=== PATIENT | female | born 1995 | race Caucasian/White ===

== ENCOUNTER 2023-04-18 11:59 | Emergency (ER) | payer OTHER ==
[2023-04-18 12:07] VITALS: BP 135/85
--- NOTE | 2023-04-18 14:18 | XRAY Report ---
PROCEDURE: Pelvis 1 View INDICATIONS: IUD broken when removed, copper TECHNIQUE: Single AP view of the pelvis acquired. COMPARISON: None. FINDINGS: Bones: No acute fractures or dislocations. No suspicious bony lesions. Soft tissues: Visualized bowel gas pattern is normal. No suspicious soft tissue calcifications. R adiopaque foreign body is seen projecting over the central pelvis, compatible with an intrauterine de vice as clinically described. IMPRESSION: Radiopaque foreign body seen projecting over the pelvis, consistent with an intrauterine device or re tained fragment. Recommend clinical correlation. Reviewed by: Wade Ramirez MD on 04/18/2023 2:16 PM PDT Approved by: Wade Ramirez MD on 04/18/2023 2:16 PM PDT Station ID: [id number]
--- NOTE | 2023-04-18 15:04 | ED Physician Documentation ---
History of Present Illness - Stated complaint Stated Complaint: FEMALE - Chief complaint Chief Complaint: General - History obtained from History obtained from: Patient - History of Present Illness Timing: Today Pain level max: 0 Pain level now: 0 - Additonal information Additional information: Patient is a 27-year-old female who presents to the emergency department stating that she pulled her ParaGard IUD out at home, but one of the arms was broken off. She is asymptomatic. Nothing makes it better or worse. Review of Systems Constitutional: denies: Fever GI: denies: Vomiting : denies: Dysuria, Frequency, Hesitancy, Discharge, Vaginal bleeding, Now [facility] PD PAST MEDICAL HISTORY - Past Medical History Past Medical History: No - Past Surgical History Past Surgical History: No - Allergies Allergies/Adverse Reactions: Allergies Allergy/AdvReac Type Severity Reaction Status Date / Time amoxicillin [From Amoxil] Allergy Hives Verified 04/18/23 12:06 PD ED PE NORMAL - Vitals Vital signs reviewed: Yes - General General: Alert and oriented X 3, No acute distress - HEENT HEENT: Moist mucous membranes - Cardiac Cardiac: RRR - Respiratory Respiratory: No respiratory distress, Clear bilaterally - Abdomen Abdomen: Soft, Non tender, Non distended - Derm Derm: Warm and dry - Neuro Neuro: Alert and oriented X 3 - Psych Psych: Normal mood, Normal affect Results - Vitals Vitals: Vital Signs - 24 hr 04/18/23 12:04 Temperature 36.2 C L Heart Rate 86 Respiratory 16 Rate Blood Pressure 135/85 H O2 Saturation 99 Oxygen O2 Source Room air - Rads (name of study) Pelvic x-ray Relevant Findings:: Final report received, See rad report Pelvis ultrasound Relevant Findings:: Final report received, See rad report PD Medical Decision Making - ED course Complexity details: reviewed results, re-evaluated patient, considered differential, d/w patient ED course: 27-year-old female with a retained fragment of the IUD in the lower uterine segment. Discussed the case with Dr. Gillespie, gynecology, recommends follow-up in office for further evaluation. Patient counseled regarding signs and symptoms for which I believe and urgent re-evaluation would be necessary. Patient with good understanding of and agreement to plan and is comfortable going home at this time This document was made in part using voice recognition software. While efforts are made to proofread this document, sound alike and grammatical errors may occur. IMPRESSION: Radiopaque foreign body seen projecting over the pelvis, consistent with an intrauterine device or retained fragment. Recommend clinical correlation. Pelvic US IUD retained fragment in lower uterine segment. Departure - Departure Disposition: 01 Home, Self Care Clinical Impression: Retained intrauterine contraceptive device (IUD) Condition: Good Instructions: Control IUD Follow-Up: [facility] [Provider Group] - Within 1 week Comments: The arm of your IUD appears to be in the lower uterine segment. Please do not attempt to get until cleared by gynecology. Please return if you worsen. The [facility] women's clinic will call you for a follow-up appointment, if you do not hear from them in the next few days, please call them. I spoke with Dr. Gillespie today Discharge Date/Time: 04/18/23 15:14
--- NOTE | 2023-04-18 15:51 | Ultrasound Report ---
PROCEDURE: Pelvic Limited or F/U INDICATIONS: IUD wing retained after self removal TECHNIQUE: Real-time transabdominal scanning was performed of the pelvic organs, with image documentation. COMPARISON: Pelvic radiographs 04/18/2023 FINDINGS: Uterus: Uterus is retroverted and subjectively normal in size. The myometrium is homogeneous. Intrau terine device fragment is seen in the lower uterine segments and appears to be slightly to the right of the endometrial canal, possibly within the myometrium. IMPRESSION: IUD fragment is located in the lower uterine segment on the right side, likely at least partially wit hin the myometrium. Reviewed by: Wade Ramirez MD on 04/18/2023 3:49 PM PDT Approved by: Wade Ramirez MD on 04/18/2023 3:49 PM PDT Station ID: [id number]
== END 2023-04-18 15:14 | disposition home or self-care (01) ==
LOC: ED 11:59
DX: T83.39XA Other mechanical complication of intrauterine contraceptive device, initial encounter (principal)
CPT/HCPCS: 99283; 99284

== ENCOUNTER 2023-09-02 07:43 | Day surgery (SDC) | payer OTHER ==
[2023-09-02 08:26] LABS: HCG UR QUAL NEGATIVE
[2023-09-02] MEDS ORDERED: LACTATED RINGERS 1,000 ML IV ONE (08:31)
--- NOTE | 2023-09-02 08:52 | HISTORY & PHYSICAL EXAMINATION ---
History and Physical - History and Physical HPI: Patient is a 28-year-old female presenting today for hysteroscopic removal of retained IUD arm. She desires sterility and attempted to remove the IUD, but the arm was left in place. All other symptoms reviewed and were negative except per HPI. PMH Denies pertinent medical history PSH No previous surgeries SH Denies tobacco, alcohol, drugs Family History Noncontributory Allergies Amoxicillin Medications Occasional Benadryl Physical exam: Temp Pulse Resp BP Pulse Ox O2 Flow Rate 97.3 F L 93 16 126/83 H 100 09/02/23 08:13 09/02/23 08:13 09/02/23 08:13 09/02/23 08:13 09/02/23 08:13 General: Alert, oriented, no acute distress Head: Normal cephalic atraumatic Eyes: PERRLA, extraocular motions intact. Respiratory: Normal rate of respiration. No accessory muscle use, normal respiratory effort. Cardiovascular: Regular rate and rhythm Abdomen: Nontender, nondistended Extremities: Normal range of motion, no cords palpated tenderness in the calves bilaterally. Neuro: Oriented x3. Normal movements Psych: Appropriate mood and affect. Normal judgment and insight Plan 28-year-old female with retained IUD next 1. Retained IUD -Discussed the risk, benefits alternatives of the procedure with the patient and she would still like to proceed with hysteroscopic removal of retained IUD arm. We discussed that if we are unable to see, which she may have to go to a facility with fluoroscopy, but we will discuss that after surgery if necessary. Antibiotics not indicated. All patient's questions were answered and she would like to proceed.
[2023-09-02] MEDS ORDERED: SILVER NITRATE APPLICATOR TOP ONE (08:56)
[2023-09-02] MEDS ORDERED: BUPIVACAINE 0.5% PF 10 ML VIAL ONE (08:56)
[2023-09-02] MEDS ORDERED: LIDOCAINE 1%-EPI 1:100000 20 ML MDV ONE (08:56)
[2023-09-02] MEDS ORDERED: HYDROmorphone 0.5 MG/0.5 ML SYRINGE IVP PRN (08:57)
[2023-09-02] MEDS ORDERED: NALOXONE 0.4 MG/ML VIAL IVP PRN (08:57)
[2023-09-02] MEDS ORDERED: ATROPINE ABBOJECT 1 MG/10 ML SYRINGE IVP PRN (08:57)
[2023-09-02] MEDS ORDERED: MORPHINE 2 MG/ML CARPUJECT IVP PRN (08:57)
[2023-09-02] MEDS ORDERED: ePHEDrine 50 MG/ML VIAL IVP PRN (08:57)
[2023-09-02] MEDS ORDERED: ONDANSETRON 4 MG/2 ML VIAL IVP PRN (08:57)
[2023-09-02] MEDS ORDERED: fentaNYL 100 MCG/2 ML VIAL IVP PRN (08:57)
[2023-09-02] MEDS ORDERED: METOCLOPRAMIDE 10 MG/2 ML VIAL IVP PRN (08:57)
--- NOTE | 2023-09-02 08:57 | ANESTHESIA ---
Pre-Anesthesia VS, & Labs - Diagnosis IUD retained - Procedure IUD removal Vital Signs: Temp Pulse Resp BP Pulse Ox O2 Flow Rate 36.3 C L 93 16 126/83 H 100 09/02/23 08:13 09/02/23 08:13 09/02/23 08:13 09/02/23 08:13 09/02/23 08:13 Height: 5 ft 5 in Weight (kg): 88.4 kg Body Mass Index: 32.4 BMI Classification: Obese - NPO >8 hours - Is Patient ?: No - Lab Results Lab results reviewed: Yes Home Medications and Allergies Home Medications: Ambulatory Orders Cholecalciferol [Vitamin D3] 25 mcg PO DAILY 08/25/23 Multivitamin 1 each PO DAILY 08/25/23 Cholecalciferol [Vitamin D3] 25 mcg PO DAILY 08/25/23 Multivitamin 1 each PO DAILY 08/25/23 Allergies/Adverse Reactions: Allergies Allergy/AdvReac Type Severity Reaction Status Date / Time amoxicillin [From Amoxil] Allergy Hives Verified 04/18/23 12:06 Anes History & Medical History - Anesthetic History Anesthesia Complications: reports: No previous complications Family history of Anesthesia Complications: Denies Family history of Malignant Hyperthermia: Denies - Medical History Cardiovascular: reports: None Pulmonary: reports: None Gastrointestinal: reports: None Urinary: reports: None Musculoskeletal: reports: None Endocrine/Autoimmune: reports: None Skin: reports: None Exam General: Alert, Oriented x3, Cooperative Dental: WNL Mouth Openin Fingerbreadth Neck Mobility: Normal Mallampati classification: II Thyromental Distance: 4-6 cm Respiratory: Lungs clear, Normal breath sounds, No respiratory distress Cardiovascular: Regular rate Neurological: Normal speech Mental/Cognitive Status: Alert/Oriented X3, Normal for patient Cognitive Status: Within normal limits Plan Anesthesia Type: MAC, Total IV Consent for Procedure(s) Verified and Reviewed: Yes Code Status: Attempt Resuscitation ASA classification: 2-Mild systemic disease Is this case an emergency?: No
[2023-09-02] MEDS ORDERED: LACTATED RINGERS 1,000 ML IV SCH (09:00)
[2023-09-02] MEDS ORDERED: MIDAZOLAM 2 MG/2 ML VIAL ONE (09:10)
[2023-09-02] MEDS ORDERED: PROPOFOL 200 MG/20 ML VIAL IVP ONE ×3 (09:11→10:04)
[2023-09-02] MEDS ORDERED: LIDOCAINE-PF 2% 10 ML AMP SUBQ ONE (09:32)
[2023-09-02] MEDS ORDERED: BUPIVACAINE 0.5% PF 10 ML VIAL IM ONE ×2 (09:42)
[2023-09-02] MEDS ORDERED: LIDOCAINE 1%-EPI 1:100000 20 ML MDV SUBQ ONE ×2 (09:42)
[2023-09-02] MEDS ORDERED: KETOROLAC 30 MG/ML VIAL ONE (09:53)
[2023-09-02] MEDS ORDERED: LACTATED RINGERS 250 ML IV ONE (10:11)
--- NOTE | 2023-09-02 10:11 | OPERATIVE REPORT ---
Operative Report - General Procedure Date: 09/02/23 Planned Procedure: Hysteroscopy, possible MyoSure D&C, IUD removal Pre-Op Diagnosis: Retained IUD Procedure Performed: Hysteroscopy, MyoSure D&C Post Op Diagnosis: Retained IUD - Procedure Note Primary Surgeon: Mitchel Veliz MD Anesthesia Provider: Michael Whitley CRNA Anesthesia Technique: Other (IV general) Pathology: None IV Fluids (mL): 600 Estimated Blood Loss (mL): 2 Findings: Proliferative appearing endometrium, normal uterine cavity. Bilateral tubal ostia noted. No IUD fragment located. Complications: None - Other Other Information/Narrative: Patient was taken to the procedure room and placed in dorsal lithotomy position. Hibiclens was used to clean the operative area. [place] speculum was palced in the vagina and the cervix was visualized. The anterior lip the cervix was grasped with a single-tooth tenaculum. The cervix was non-stenotic and allowed the easy passage of dilators. Hysteroscope was then used to hydrodilate using normal saline distention media. Hysteroscope was advanced without difficulty using hydrodistention. Cervical canal was noted to have no lesions. Upon entry into the internal cervical os there was noted to be proliferative endometrium within the uterus. She did have some endometrial tissue obscuring the view, so MyoSure device was used to resect that to give good position of the uterus. Bilateral tubal ostia were noted. Despite circumferential assessment, no IUD remnant could be located. We attempted multiple rotations trying to find the remnant, and were ultimately unsuccessful. Hysteroscope was then removed. Tenaculum was then removed from the cervix noted to be hemostatic. All instruments removed from the vagina Fluid deficit 400.
[2023-09-02 10:30] VITALS: O2SAT 100
[2023-09-02 10:49] VITALS: BP 115/87
--- NOTE | 2023-09-02 11:20 | ANESTHESIA POST OP EVALUATION ---
Anesthesia Post Eval - Post Anesthesia Eval Vitals: Last Vital Signs Temp 36.0 C L 09/02/23 10:45 Pulse 66 09/02/23 10:45 Resp 16 09/02/23 10:45 BP 115/87 H 09/02/23 10:45 Pulse Ox 100 09/02/23 10:45 O2 Flow Rate CV Function Including HR & BP: Stable Pain Control: Satisfactory Nausea & Vomiting: Negative Mental Status: Baseline Respiratory Status: Airway Patent Hydration Status: Satisfactory Anesthesia Complications: None
== END 2023-09-02 07:44 | disposition home or self-care (01) ==
LOC: SDS 07:43
PROVIDERS: ATTEND Obstetrics & Gynecology
PROC: 0UDB8ZZ Extraction of Endometrium, Via Natural or Artificial Opening Endoscopic (ICD-10-PCS; principal; 2023-09-02 09:00)
DX: Z30.432 Encounter for removal of intrauterine contraceptive device (principal); T83.89XA Other specified complication of genitourinary prosthetic devices, implants and grafts, initial encounter; E66.9 Obesity, unspecified; Z68.32 Body mass index [BMI] 32.0-32.9, adult
CPT/HCPCS: 58558; 81025; J7120